=== PATIENT | female | born 1970 | race Caucasian/White ===

== ENCOUNTER → 2017-06-25 | Outpatient (CLI) | payer OTHER ==
[~2017-06-25] MED LIST: ANTIVERT25 MG PO; ARMOUR THYROID90 M1; FLAGYL500 MG; LOPRESSOR25; WELLBUTRIN XL300 MG; ZOFRAN ODT4 MG PO
== END ==
LOC: M.RAD 11:28
DX: M25.571 Pain in right ankle and joints of right foot (principal); R06.02 Shortness of breath; R42 Dizziness and giddiness

== ENCOUNTER → 2017-07-03 | Outpatient (CLI) | payer OTHER | LOC: M.MRI 11:21 | DX: M25.571 Pain in right ankle and joints of right foot (principal); R22.41 Localized swelling, mass and lump, right lower limb; M79.89 Other specified soft tissue disorders ==

== ENCOUNTER 2020-11-18 19:59 | Emergency (ER) | payer OTHER ==
[~2020-11-18] VITALS: Ht 157.5 cm; Wt 59.0 kg
[2020-11-18 20:48] LABS: URINE BILIRUBIN NEGATIVE (Negative); URINE BLOOD NEGATIVE (Negative); URINE CLARITY CLEAR; URINE COLOR YELLOW; URINE GLUCOSE-RANDOM NEGATIVE (Negative); URINE KETONES NEGATIVE (Negative); URINE LEUKOCYTES-REFLEX NEGATIVE (Negative); URINE NITRITE-REFLEX NEGATIVE (Negative); URINE PROTEIN NEGATIVE (Negative); URINE SPECIFIC GRAVITY 1.015 (1.005-1.030); URINE UROBILINOGEN 0.2 E.U./dl (0.2-1.0)
[2020-11-18 21:36] LABS: ABSOLUTE LYMPHOCYTES 1.4 thou/uL (0.8-5.3); ABSOLUTE MONOCYTES 0.2 thou/uL (0.0-1.2); ABSOLUTE NEUTROPHILS 2.5 thou/uL (1.6-8.1); BASOPHILS 0.8 %; EOSINOPHILS 0.8 %; HEMATOCRIT 31.7 % (37.0-47.0); HEMOGLOBIN 9.9 gm/dL (12.0-15.0); LYMPHOCYTES 33.2 %; MCH 23.7 pg (26.0-34.0); MCHC 31.3 g/dL (28.0-37.0); MCV 75.8 fL (80.0-100.0); MONOCYTES 5.4 %; NUCLEATED RBCS 0 /100WBC; PLATELET COUNT* 253 thou/uL (150-400); POLYS 59.8 %; RBC 4.18 mil/uL (4.20-5.00); RDW-CV 18.9 % (10.5-14.5); WBC 4.1 thou/uL (4.0-11.0)
[2020-11-18 21:48] LABS: CALCIUM 8.3 mg/dL (8.5-10.1); CREATININE 0.9 mg/dL (0.6-1.3); POTASSIUM 3.3 mmol/L (3.5-5.1)
[2020-11-18 21:53] LABS: ALBUMIN 3.6 g/dL (3.4-5.0); TOTAL BILIRUBIN 0.2 mg/dL (<0.1-1.0)
[2020-11-18] MEDS ORDERED: CARAFATE 1 GM TA1 GM PO (23:58)
[2020-11-19 00:39] VITALS: BP 150/60
== END 2020-11-19 00:40 | disposition home or self-care (01) ==
LOC: M.ERS 19:59
PROVIDERS: Emergency Medicine
DX: K59.00 Constipation, unspecified (principal); R63.0 Anorexia; F32.9 Major depressive disorder, single episode, unspecified; F41.9 Anxiety disorder, unspecified; Z90.49 Acquired absence of other specified parts of digestive tract; Z98.890 Other specified postprocedural states; Z79.899 Other long term (current) drug therapy; Z88.6 Allergy status to analgesic agent

== ENCOUNTER → 2021-01-25 | Outpatient (CLI) | payer BC ==
[~2021-01-25] MED LIST changes: +CARAFATE 1 GM TA1 GM PO
== END ==
LOC: M.RAD 09:10
PROVIDERS: ATTEND Nurse Practitioner Family
DX: Z12.31 Encounter for screening mammogram for malignant neoplasm of breast (principal)

== ENCOUNTER → 2021-01-31 | Outpatient (CLI) | payer OTHER | LOC: M.ULTRA 11:19 | PROVIDERS: ATTEND Nurse Practitioner Family | DX: N60.01 Solitary cyst of right breast (principal) ==

== ENCOUNTER 2021-04-22 19:48 | Emergency (ER) | payer OTHER ==
[~2021-04-22] VITALS: Ht 157.5 cm; Wt 59.0 kg
[2021-04-22] MEDS ORDERED: WELLBUTRIN SR150 M1 PO (20:00)
[2021-04-22] MEDS ORDERED: MECLIZINE HCL25 M1 PO (20:01)
[2021-04-22] MEDS ORDERED: CEPHALEXIN500 MG PO (20:55)
[2021-04-22] MEDS ORDERED: TRANSDERM-SCOP1 EACH TRANSDERM (20:55)
[2021-04-22 21:25] VITALS: BP 167/73
== END 2021-04-22 21:15 | disposition home or self-care (01) ==
LOC: M.ERS 19:48
DX: S61.210A Laceration without foreign body of right index finger without damage to nail, initial encounter (principal); F41.9 Anxiety disorder, unspecified; F32.9 Major depressive disorder, single episode, unspecified; Z90.49 Acquired absence of other specified parts of digestive tract; Z79.899 Other long term (current) drug therapy; Z88.6 Allergy status to analgesic agent; W45.8XXA Other foreign body or object entering through skin, initial encounter; Y93.89 Activity, other specified; Y92.89 Other specified places as the place of occurrence of the external cause; Y99.8 Other external cause status